=== PATIENT | female | born 1950 | race Caucasian/White ===

== ENCOUNTER 2017-05-08 07:06 | Inpatient (IN) ==
[2017-05-08] MEDS ORDERED: LACTULOSE 20 GM/30 ML UDCUP PO PRN (08:14)
[2017-05-08] MEDS ORDERED: DOCUSATE SODIUM 100 MG CAPSULE PO PRN (08:14)
[2017-05-08 09:34] LABS: Basophils % 0.3 % (0.0-0.8); Eosinophils % 0.3 % (0.00-10.9); Hematocrit 38.1 VOL% (35.7-47.0); Hemoglobin 12.6 GM/DL (12.0-16.0); Immature Granulocytes % 0.2 %; Immature Granulocytes Absolute 0.02 #; Lymphocytes # 1.6 10*3/uL (1.4-4.0); Mean Corpuscular HGB Conc 33.1 GM/DL (32-36); Mean Corpuscular Hemoglobin 31 PG (27-34); Mean Corpuscular Volume 92.3 FL (87-102); Mean Platelet Volume 9.6 FL (9.6-12.0); Monocytes # 0.9 10*3/uL (0.11-0.8); Monocytes % 10.2 % (1.7-12.7); Neutrophils # 6.4 10*3/uL (1.4-7.4); Platelet Count 312 T/CUMM (130-400); Red Blood Count 4.13 MC/CUMM (3.8-5.5); Red Cell Distribution Width 12.8 % (9.3-17.3)
[2017-05-08 09:59] LABS: Calcium 8.8 MG/DL (8.5-10.1); Osmolality,Calculated 276.5 MOS/KG (273-304); Potassium 4.3 MMOL/L (3.5-5.1)
[2017-05-08] MEDS: SODIUM CHLORIDE 0.9% 1,000 ML IV SCH ×4 (12:58→22:49)
[2017-05-08] MEDS: PANTOPRAZOLE 40 MG VIAL IV SCH (12:58)
[2017-05-08 13:49] LABS: Bilirubin,Direct 0.19 MG/DL (0.0-0.20); Bilirubin,Indirect 0.4 MG/DL (0.0-1.0); Bilirubin,Total 0.6 MG/DL (0.2-1.0); Total Protein 7.2 G/DL (6.4-8.3)
[2017-05-08] MEDS: PIPERACILLIN/TAZOBACTAM 3,375 MG in SODIUM CHLORIDE 0.9% 100 ML IV SCH ×2 (13:50→20:15)
[2017-05-08] MEDS: MORPHINE 2 MG/1 ML SYRINGE IV PRN (14:56)
[2017-05-08] MEDS: ONDANSETRON 4 MG/2 ML VIAL IV PRN (14:56)
[2017-05-08] MEDS: ACETAMINOPHEN 325 MG TABLET PO PRN (20:16)
[2017-05-09] MEDS: ACETAMINOPHEN 325 MG TABLET PO PRN ×3 (02:10→20:14)
[2017-05-09] MEDS: ONDANSETRON 4 MG/2 ML VIAL IV PRN ×2 (03:09→09:25)
[2017-05-09] MEDS: SODIUM CHLORIDE 0.9% 1,000 ML IV SCH ×4 (03:30→14:40)
[2017-05-09 04:45] LABS: Basophils % 0.5 % (0.0-0.8); Eosinophils % 0.7 % (0.00-10.9); Hematocrit 34.5 VOL% (35.7-47.0); Hemoglobin 11.6 GM/DL (12.0-16.0); Immature Granulocytes % 0.2 %; Immature Granulocytes Absolute 0.01 #; Lymphocytes # 1.5 10*3/uL (1.4-4.0); Lymphocytes % 25.2 % (21.3-54.2); Mean Corpuscular HGB Conc 33.6 GM/DL (32-36); Mean Corpuscular Hemoglobin 30 PG (27-34); Mean Corpuscular Volume 90.1 FL (87-102); Mean Platelet Volume 9.9 FL (9.6-12.0); Monocytes # 0.7 10*3/uL (0.11-0.8); Monocytes % 12.1 % (1.7-12.7); Neutrophils # 3.7 10*3/uL (1.4-7.4); Neutrophils % 61.3 % (38.7-73.9); Platelet Count 289 T/CUMM (130-400); Red Blood Count 3.83 MC/CUMM (3.8-5.5); Red Cell Distribution Width 12.8 % (9.3-17.3)
[2017-05-09] MEDS: PIPERACILLIN/TAZOBACTAM 3,375 MG in SODIUM CHLORIDE 0.9% 100 ML IV SCH ×3 (04:56→20:14)
[2017-05-09 05:14] LABS: Albumin 3.4 G/DL (3.4-5.0); Bilirubin,Direct 0.18 MG/DL (0.0-0.20); Bilirubin,Indirect 0.8 MG/DL (0.0-1.0)
[2017-05-09 05:15] LABS: Calcium 8.2 MG/DL (8.5-10.1); Osmolality,Calculated 279.1 MOS/KG (273-304); Potassium 3.9 MMOL/L (3.5-5.1); Risk Ratio 3.42; VLDL CHOLESTEROL 16.4 MG/DL
[2017-05-09] MEDS: PANTOPRAZOLE 40 MG VIAL IV SCH (08:16)
[2017-05-09] MEDS: PROMETHAZINE 25 MG/1 ML VIAL IM PRN (10:32)
[2017-05-10] MEDS: SODIUM CHLORIDE 0.9% 1,000 ML IV SCH ×5 (01:26→23:08)
[2017-05-10] MEDS: ACETAMINOPHEN 325 MG TABLET PO PRN ×2 (01:27→18:14)
[2017-05-10] MEDS: PIPERACILLIN/TAZOBACTAM 3,375 MG in SODIUM CHLORIDE 0.9% 100 ML IV SCH ×3 (05:20→20:24)
[2017-05-10 05:31] LABS: Basophils % 0.6 % (0.0-0.8); Eosinophils % 0.7 % (0.00-10.9); Hematocrit 35.4 VOL% (35.7-47.0); Immature Granulocytes % 0.2 %; Immature Granulocytes Absolute 0.01 #; Lymphocytes # 1.4 10*3/uL (1.4-4.0); Lymphocytes % 26.7 % (21.3-54.2); Mean Corpuscular HGB Conc 33.9 GM/DL (32-36); Mean Corpuscular Hemoglobin 30 PG (27-34); Mean Corpuscular Volume 89.4 FL (87-102); Mean Platelet Volume 9.7 FL (9.6-12.0); Monocytes # 0.7 10*3/uL (0.11-0.8); Monocytes % 12.5 % (1.7-12.7); Neutrophils # 3.2 10*3/uL (1.4-7.4); Neutrophils % 59.3 % (38.7-73.9); Platelet Count 294 T/CUMM (130-400); Red Blood Count 3.96 MC/CUMM (3.8-5.5); Red Cell Distribution Width 12.5 % (9.3-17.3); White Blood Count 5.4 T/CUMM (4-12)
[2017-05-10 06:02] LABS: Albumin 3.3 G/DL (3.4-5.0); Calcium 8.6 MG/DL (8.5-10.1); Osmolality,Calculated 277.3 MOS/KG (273-304); Potassium 3.6 MMOL/L (3.5-5.1); Total Protein 6.3 G/DL (6.4-8.3)
[2017-05-10] MEDS: PANTOPRAZOLE 40 MG VIAL IV SCH (11:05)
[2017-05-10] MEDS ORDERED: TISSUE ADHESIVE 1 EACH APPLICATOR TOP ONE (11:17)
[2017-05-10] MEDS ORDERED: BUPIVACAINE 0.25% 50 ML VIAL ONE (11:18)
[2017-05-10] MEDS ORDERED: DEXTROSE 5% NACL 0.45% 1,000 ML IV SCH (13:30)
[2017-05-10] MEDS ORDERED: PROPOFOL 200 MG/20 ML VIAL IV ONE (15:19)
[2017-05-10] MEDS ORDERED: SEVOFLURANE 1 UNIT/15 MINUTE INH ONE (15:19)
[2017-05-10] MEDS ORDERED: fentaNYL 100 MCG/2 ML VIAL ONE (15:20)
[2017-05-10] MEDS ORDERED: ACETAMINOPHEN 1,000 MG/100 ML VIAL IV ONE (15:20)
[2017-05-10] MEDS ORDERED: NEOSTIGMINE 10 MG/10 ML VIAL ONE (15:20)
[2017-05-10] MEDS ORDERED: GLYCOPYRROLATE 0.4 MG/2 ML VIAL ONE (15:20)
[2017-05-10] MEDS ORDERED: MIDAZOLAM 2 MG/2 ML VIAL ONE (15:20)
[2017-05-10] MEDS ORDERED: ROCURONIUM 100 MG/10 ML VIAL IV ONE (15:21)
[2017-05-10] MEDS: MORPHINE 2 MG/1 ML SYRINGE IV PRN ×2 (17:10→23:15)
[2017-05-11] MEDS: SODIUM CHLORIDE 0.9% 1,000 ML IV SCH ×2 (03:05→17:47)
[2017-05-11 04:07] LABS: Basophils % 0.3 % (0.0-0.8); Eosinophils % 0.2 % (0.00-10.9); Hematocrit 35.7 VOL% (35.7-47.0); Hemoglobin 12.3 GM/DL (12.0-16.0); Immature Granulocytes % 0.3 %; Immature Granulocytes Absolute 0.04 #; Lymphocytes % 8.6 % (21.3-54.2); Mean Corpuscular HGB Conc 34.5 GM/DL (32-36); Mean Corpuscular Hemoglobin 31 PG (27-34); Mean Platelet Volume 9.7 FL (9.6-12.0); Monocytes # 1.3 10*3/uL (0.11-0.8); Monocytes % 11.1 % (1.7-12.7); Neutrophils # 9.3 10*3/uL (1.4-7.4); Neutrophils % 79.5 % (38.7-73.9); Platelet Count 299 T/CUMM (130-400); Red Blood Count 4.01 MC/CUMM (3.8-5.5); Red Cell Distribution Width 12.3 % (9.3-17.3); White Blood Count 11.6 T/CUMM (4-12)
[2017-05-11 04:49] LABS: Albumin 3.4 G/DL (3.4-5.0); Bilirubin,Total 1.4 MG/DL (0.2-1.0); Calcium 8.5 MG/DL (8.5-10.1); Osmolality,Calculated 274.7 MOS/KG (273-304); Potassium 3.7 MMOL/L (3.5-5.1); Total Protein 6.3 G/DL (6.4-8.3)
[2017-05-11] MEDS: PIPERACILLIN/TAZOBACTAM 3,375 MG in SODIUM CHLORIDE 0.9% 100 ML IV SCH ×3 (04:49→20:24)
[2017-05-11] MEDS: PROMETHAZINE 25 MG/1 ML VIAL IM PRN (04:56)
[2017-05-11] MEDS: PANTOPRAZOLE 40 MG VIAL IV SCH (09:10)
[2017-05-12] MEDS: PIPERACILLIN/TAZOBACTAM 3,375 MG in SODIUM CHLORIDE 0.9% 100 ML IV SCH ×2 (05:33→12:24)
[2017-05-12] MEDS: SODIUM CHLORIDE 0.9% 1,000 ML IV SCH ×2 (08:36→08:37)
[2017-05-12 08:38] LABS: Albumin 3.6 G/DL (3.4-5.0); Calcium 8.7 MG/DL (8.5-10.1); Osmolality,Calculated 278.3 MOS/KG (273-304); Potassium 3.6 MMOL/L (3.5-5.1); Total Protein 6.8 G/DL (6.4-8.3)
[2017-05-12] MEDS: PANTOPRAZOLE 40 MG VIAL IV SCH (09:06)
[2017-05-12 11:28] VITALS: BP 100/59
== END 2017-05-12 14:20 | disposition home or self-care (01) | DRG 418 ==
LOC: EDBD → EDUNIT# → N.ED 07:06 → N.EDINP 08:13 → SUATTDRO 08:13 → N.EDINP 10:15 → N.3E 10:46
PROVIDERS: ADMIT Internal Medicine Nephrology; ATTEND Internal Medicine Nephrology
PROC: LAPCHOL (2017-05-10 13:44)